=== PATIENT | female | born 1960 | race Caucasian/White ===

== ENCOUNTER 2017-04-06 08:07 | Observation (INO) | payer BC ==
--- NOTE | ~2017-04-06 | HP ---
History And Physical [id number] [place]. [address] NAME: JOSEPH STANTON : 64 STATUS : ADM Allyssa PAT#: [id number] AGE: 56 ADM/REG DATE : 04/06/17 MR#: [id number] REPORT SERV DATE: 04/06/17 DICTATED BY: DATE: REPORT STATUS : Draft TRANSCRIBED BY: MODL DATE: 04/06/17 DATE OF ADMISSION: 04/06/2017 The patient is admitted to the [facility] Hospitalist Service. CHIEF COMPLAINT: "Pain everywhere," nausea, pain in the abdomen. HISTORY OF PRESENT ILLNESS: Ms. Stanton is a 56-year-old white female, admitted to [facility] yesterday by Dr. Renteria for a chief complaint of chest pressure. There was concern for a possible cardiac ischemia and so she was transferred to the [facility] on 04/06 and has undergone subsequent coronary catheterization by Dr. Minor Perez with normal coronaries. However, she continues to express pain everywhere and some nausea. Dr. Perez felt that she was too sick to be discharged to home and requested admission to the Hospitalist Service. The patient is recovering in short-stay, states that her pain has been present for several weeks. There is no specific location for her pain aside from perhaps her epigastrium. She has been feeling nauseous, but has not vomited. She has had a Nicolette fundoplication x2 and states that she is unable to vomit. She states the pain feels "as if it is coming unravelled." She has also endorsed some loose stools, but denies any melena or bright red blood per rectum. She denies fevers and chills. She denies any dysuria or other urinary issues. When asked in more detail to describe the whole-body pain, she just simply states that it is both arms, back, and lower extremities. She is requesting IV pain medications for this. She denies any recent medication changes or other symptoms of note. She has had a comprehensive metabolic panel here, which shows new elevation of her liver enzymes which she states is not an issue she has experienced in the past. REVIEW OF SYSTEMS: Full 14-point review of systems is negative except as dictated in the history of present illness. PAST MEDICAL HISTORY: Includes, 1. Hypertension, for which she recently started losartan. 2. COPD with ongoing tobacco use. 3. History of treated TB. 4. History of ovarian cancer with treatment over 20 years ago. 5. Gastroesophageal reflux disease. 6. Chronic back pain. 7. History of dyslipidemia. PAST SURGICAL HISTORY: Includes cholecystectomy, appendectomy, total hysterectomy, oophorectomy, Nicolette fundoplication x2, history of prior back surgery. ALLERGIES: INCLUDE TORADOL AND CLONIDINE. History And Physical [address] [address] NAME: JOSEPH STANTON : 64 STATUS : ADM Allyssa PAT#: [id number] AGE: 56 ADM/REG DATE : 04/06/17 MR#: [id number] REPORT SERV DATE: 04/06/17 DICTATED BY: DATE: REPORT STATUS : Draft TRANSCRIBED BY: PAULINA DATE: 04/06/17 CURRENT MEDICATIONS: Losartan, ibuprofen, and albuterol. SOCIAL HISTORY: The patient is and has one child, 37 years old. He does not live locally. She is disabled. She smokes three cigarettes a day. She does not presently consume any alcohol, but used to drink heavily, and so she stopped a year ago. No history of illicit substance use. FAMILY HISTORY: Pertinent for congestive heart failure in her father, who of lung cancer. Multiple siblings with early myocardial infarctions, and one brother with history of viral hepatitis. The patient's mother is in good health. PHYSICAL EXAMINATION: VITAL SIGNS: Temperature 97.6, pulse 72, respirations 20, oxygen saturations 97% on room air, and blood pressure 124/61. GENERAL: This is an obese white female, in no acute distress. Alert and oriented in three dimensions. Asking for food and pain medications. HEENT: Normocephalic, atraumatic. Pupils are equally round and reactive to light. No scleral icterus. No sinus tenderness to palpation. Oropharynx moist and pink. NECK: Supple. No jugular venous distention. No lymphadenopathy. No bruits. CARDIOVASCULAR: Regular rate and rhythm. No murmurs, rubs or gallops. LUNGS: Clear to auscultation bilaterally with faint end-expiratory wheezing on forced expiration. No crackles or rhonchi. ABDOMEN: Soft with minimal epigastric tenderness to palpation. No rebound. No guarding. No right upper quadrant tenderness to palpation. Positive bowel sounds in four quadrants with no hepatosplenomegaly. EXTREMITIES: No cyanosis, clubbing, or edema. SKIN: Normal skin turgor with no rash or skin breakdown. NEUROLOGIC: Cranial nerves 2 through 12 were tested and are intact. Deep tendon reflexes 2+ bilateral, brachioradialis and patellar tendons. Sensation intact to fine touch and temperature in all four limbs, strength is 5/5 throughout. PERTINENT LABS: White blood cell count 7.2, hemoglobin 14.5, hematocrit 42.2, platelets 261. Sodium 138, potassium 3.9, chloride 103, bicarb 30, BUN 15, creatinine 1.0, glucose 122, calcium 8.3. Total cholesterol 224, HDL 60, LDL 137, triglycerides 135, total protein 6.9, albumin 3.4, alkaline phosphatase 149, ALT 292, AST 359, amylase 49, lipase 150. Multiple troponins negative. IMAGING: PA lateral chest x-ray, no acute cardiopulmonary disease. IMPRESSION: 1. Abdominal pain. 2. Elevated liver enzymes. 3. Nausea, but no vomiting, history of Nicolette fundoplication. 4. Diarrhea. 5. Gastroesophageal reflux disease. 6. History of alcohol abuse. History And Physical [address] [address] NAME: JOSEPH STANTON : 64 STATUS : ADM Allyssa PAT#: [id number] AGE: 56 ADM/REG DATE : 04/06/17 MR#: [id number] REPORT SERV DATE: 04/06/17 DICTATED BY: DATE: REPORT STATUS : Draft TRANSCRIBED BY: MODL DATE: 04/06/17 7. Chronic obstructive pulmonary disease. 8. History of treated tuberculosis. 9. History of ovarian cancer. 10.History of chronic pain with recent acute pain "all over.". PLAN: 1. The patient is being admitted in observation status to the Hospitalist Service for further evaluation of her GI issues. Bed has been requested in the clinical decision unit. 2. Check a CT abdomen and pelvis to rule out common bile duct stone or other liver pathology. Lipase is negative, therefore not suggestive of acute pancreatitis. Reflux may be the etiology of patient's symptoms as it does not appear that she takes a proton pump inhibitor chronically, but does take ibuprofen. 3. Check hepatitis serologies and Tylenol level. 4. Symptomatic management with proton pump inhibitor, IV fluids, Carafate, pain medications. 5. If loose stool, send stool studies for C diff PCR, fecal white blood cell count, Gram stain, culture, ova and parasite. 6. Recheck labs in the morning for possible discharge on 04/07. Pending results of the workup outlined above. EDEN/PAULINA Dionte Waller M.D. / [id number] CC: Belia Pineda NP
--- NOTE | ~2017-04-06 | DS ---
Discharge Summary [facility] [address] [place]. [address] NAME: JOSEPH FULTON : 64 STATUS : DIS Allyssa PAT#: [id number] AGE: 56 ADM/REG DATE : 04/06/17 MR#: [id number] REPORT SERV DATE: 04/07/17 DICTATED BY: LINDA SORTO DATE: 04/07/17 REPORT STATUS : Draft TRANSCRIBED BY: MODMiya DATE: 04/07/17 ADMISSION DATE: 04/06/2017 DISCHARGE DATE: 04/07/2017 DISCHARGE DIAGNOSES: 1. Chest pain, noncardiac, musculoskeletal and costochondral. 2. Generalized abdominal pain and gastroesophageal reflux. 3. Generalized anxiety. 4. Nausea, improved. 5. Elevated liver enzymes trending downward. 6. History of chronic pain and back pain. 7. History of alcohol use. 8. History of chronic obstructive pulmonary disease with current tobacco usage. DISCHARGE MEDICATIONS: Are as follows, Cymbalta 30 mg daily, prescription was written for this; Carafate 1 g p.o. with meals and at bedtime for the next ten days; Ultram 50 mg every eight hours p.r.n. for pain; albuterol nebulizers two puffs three times daily for shortness of breath; Cozaar 25 mg daily; Advil, have recommended decreasing dosage to 200 mg every six hours p.r.n. for pain; and Prilosec 40 mg daily. HISTORY OF PRESENT ILLNESS: A 56-year-old white female, who originally was admitted at [facility] and complaints of chest pressure. Please see initial H and P of Dr. Luis F Renteria, as the patient was then transferred to [facility] and underwent heart catheterization, which showed normal coronary arteries. Hospitalist Service was asked to admit for noncardiac chest pain. Please see initial H and P of Dr. Dionte Waller. PROCEDURES AND IMAGING DURING THIS ADMISSION: Include a CT of the abdomen and pelvis that showed no acute abdominal or pelvic pathology, but status post Nicolette fundoplication, cholecystectomy, hysterectomy, and lumbar spine fusion of L5 to S1. A cardiac catheterization performed on 04/06/2017 showing no evidence of flow-limiting coronary artery disease. Ejection fraction 60%. In followup, the patient did have some initial elevated LFTs of 292 and 359, but this already began to trend down the following day to 195 and 130. Sedimentation rate was checked, which was negative within normal limits at 6. She is afebrile. On interview with the patient, she expressed to me on multiple occasions that she felt worse, that her pain was 12/10, that she needed her Xanax that she claims she had been on in the past some years ago. She clearly was very anxious just in simple conversation and questioning, and she reported that she had seen a psychiatrist in the past. She also has seen Dr. Morel for GI in the past given her history of GERD and her Nicolette fundoplication. I discussed with the patient at length the need to follow up with Dr. Morel and her primary care, and have instituted Cymbalta, prescription was written, instructed to follow up in regard to that, and to avoid at all costs benzodiazepines. We will also try limited amount of tramadol for her musculoskeletal pain and she has a prescription for 12 of these pills. In further discussion, I strongly counseled the need to quit smoking completely, as this will only be a detriment to her in the long run. The patient was then ambulating to the bathroom. Has felt somewhat better in the afternoon and so we will discharge home with the above medications, prescriptions, and following up with Discharge Summary [address] [place]. [address] NAME: JOSEPH FULTON : 64 STATUS : DIS Allyssa PAT#: [id number] AGE: 56 ADM/REG DATE : 04/06/17 MR#: [id number] REPORT SERV DATE: 04/07/17 DICTATED BY: LINDA SORTO DATE: 04/07/17 REPORT STATUS : Draft TRANSCRIBED BY: MODL DATE: 04/07/17 her primary care, Shavonne Lobo, and GI, Dr. Morel, and I have also recommended an outpatient psychiatric evaluation and followup. I have discussed this plan of care and prescriptions with the patient and her mother whom she lives with. Both are in agreement with this plan going forward. Please note that greater than 30 minutes was spent on this discharge for medication teaching, followup planning, and further disposition. GEOFF/GRACEL Linda Sorto NP / [id number] CC: Belia Pineda NP
[~2017-04-06 08:07] MED LIST: ACET500CAP PO; ADVIL PO; ALBUTEROL0.083 % INH; B COMPLETE PO; COMBIVENT INH; COZ25 PO; FLUCON1 PO; LORTAB 5 PO; LOTRIMIN AF1 % EX; NEUR100 PO; NORV5 PO; NYSTATPOW TOP; PERCOCET1 TA2 PO; PRAVACHOL40 MG PO; PREM625 PO; PRILO PO; PRIN10 PO; PROAIR HFA INH; PROVENTSOL INH; PROVHFA INH
[2017-04-06 10:49] LABS: CHOL/HDL RATIO(NOT ORDER) 3.7 (0-5)
[2017-04-06 12:15] LABS: BASOPHILS 0.8 %; BASOPHILS ABSOLUTE 0.06 10/3/uL (0.0-0.16); EOSINOPHILS ABSOLUTE 0.07 10/3/uL (0.0-0.53); HEMATOCRIT 42.2 % (36.0-48.0); HEMOGLOBIN 14.5 g/dL (12.0-16.0); IMMATURE GRANULOCYTES 0.7 %; IMMATURE GRANULOCYTES ABSOLUTE 0.05 10/3/uL (0.0-0.11); LYMPHOCYTES 27.5 %; LYMPHOCYTES ABSOLUTE 1.99 10/3/uL (0.67-4.30); MEAN CORPUS HGB CONC 34.4 g/dL (32.0-36.0); MEAN CORPUSCULAR HEMOGLOB 30.5 pg (26.0-34.0); MEAN CORPUSCULAR VOLUME 88.7 fL (80-100); MEAN PLATELET VOLUME 9.1 fL (9.2-13.0); MONOCYTES ABSOLUTE 0.65 10/3/uL (0.21-1.20); NEUTROPHILS ABSOLUTE 4.41 10/3/uL (2.02-8.40); PLATELET COUNT 261 10/3/uL (150-400); RBC DISTRIBUTION WIDTH 13.8 % (12.0-16.0); RED CELL COUNT 4.76 10/6/uL (4.0-5.6); WHITE BLOOD CELLS 7.2 10/3/uL (4.5-10.5)
[2017-04-06 12:18] LABS: MANUAL DIFF NO %
[2017-04-06 12:31] LABS: ALBUMIN 3.4 G/DL (3.5-5.0); BUN (BLOOD UREA NITROGEN) 15 MG/DL (6-23); CALCIUM, SERUM 8.3 MG/DL (8.5-10.4); CHLORIDE, SERUM 103 MMOL/L (96-112); CO2 (CARBON DIOXIDE) 30 MMOL/L (24-34); CREATININE 1.01 MG/DL (0.55-1.02); GFR AFRICAN AMERICAN 73 ML/MIN (>=60); GFR NON AFRICAN AMERICAN 63 ML/MIN (>=60); GLOBULIN 3.5 G/DL (2.5-4.1); GLUCOSE, SERUM 122 MG/DL (60-99); POTASSIUM, SERUM 3.9 MMOL/L (3.5-5.3); SGOT(AST) 359 U/L (5-40); SGPT(ALT) 292 U/L (5-65); SODIUM, SERUM 138 MMOL/L (135-148); TOTAL PROTEIN 6.9 G/DL (6.0-8.5)
[2017-04-06 12:32] LABS: ALKALINE PHOSPHATASE 149 U/L (45-117); TOTAL BILIRUBIN 0.7 MG/DL (0-1.2)
[2017-04-06 15:42] LABS: WBC (NOT ORDERED) (RFLEX) 0 (0-5)
[2017-04-06 16:08] LABS: ASCORBIC ACID (UR NOT ORDER) NEG (NEG); BILIRUBIN, URINE NEGATIVE (NEG); KETONE, URINE NEGATIVE (NEG); LEUKOCYTE ESTERASE(NOT OR NEG (NEG)
[2017-04-07 04:02] LABS: BASOPHILS 0.6 %; BASOPHILS ABSOLUTE 0.04 10/3/uL (0.0-0.16); EOSINOPHILS 1.9 %; EOSINOPHILS ABSOLUTE 0.14 10/3/uL (0.0-0.53); HEMATOCRIT 40.2 % (36.0-48.0); HEMOGLOBIN 13.5 g/dL (12.0-16.0); IMMATURE GRANULOCYTES 0.8 %; IMMATURE GRANULOCYTES ABSOLUTE 0.06 10/3/uL (0.0-0.11); LYMPHOCYTES 37.9 %; LYMPHOCYTES ABSOLUTE 2.74 10/3/uL (0.67-4.30); MANUAL DIFF NO %; MEAN CORPUS HGB CONC 33.6 g/dL (32.0-36.0); MEAN CORPUSCULAR HEMOGLOB 29.9 pg (26.0-34.0); MEAN CORPUSCULAR VOLUME 89.1 fL (80-100); MEAN PLATELET VOLUME 9.5 fL (9.2-13.0); MONOCYTES 10.7 %; MONOCYTES ABSOLUTE 0.77 10/3/uL (0.21-1.20); NEUTROPHILS 48.1 %; NEUTROPHILS ABSOLUTE 3.48 10/3/uL (2.02-8.40); PLATELET COUNT 263 10/3/uL (150-400); RBC DISTRIBUTION WIDTH 13.6 % (12.0-16.0); RED CELL COUNT 4.51 10/6/uL (4.0-5.6); WHITE BLOOD CELLS 7.2 10/3/uL (4.5-10.5)
[2017-04-07 04:25] LABS: ALBUMIN 3.3 G/DL (3.5-5.0); ALKALINE PHOSPHATASE 146 U/L (45-117); BUN (BLOOD UREA NITROGEN) 16 MG/DL (6-23); CALCIUM, SERUM 8.3 MG/DL (8.5-10.4); CHLORIDE, SERUM 106 MMOL/L (96-112); CK-MB 0.8 NG/ML; CO2 (CARBON DIOXIDE) 29 MMOL/L (24-34); CPK 36 U/L (0-200); CREATININE 1.06 MG/DL (0.55-1.02); GFR AFRICAN AMERICAN 69 ML/MIN (>=60); GFR NON AFRICAN AMERICAN 59 ML/MIN (>=60); GLOBULIN 3.3 G/DL (2.5-4.1); GLUCOSE, SERUM 114 MG/DL (60-99); MYOGLOBIN, SERUM 31 NG/ML (0-85); POTASSIUM, SERUM 4.3 MMOL/L (3.5-5.3); SGOT(AST) 130 U/L (5-40); SGPT(ALT) 195 U/L (5-65); SODIUM, SERUM 139 MMOL/L (135-148); TOTAL BILIRUBIN 0.5 MG/DL (0-1.2); TOTAL PROTEIN 6.6 G/DL (6.0-8.5)
[2017-04-07 04:26] LABS: ACETAMINOPHEN LEVEL (TYLENOL) < 2.0 MCG/ML (10.0-20.0)
[2017-04-07] MEDS ORDERED: PRILOSEC40 MG PO (14:38)
[2017-04-07] MEDS ORDERED: SUCR PO (14:38)
[2017-04-07] MEDS ORDERED: CYMBALTA30 PO (14:38)
[2017-04-07] MEDS ORDERED: ULTRAM50 PO (14:39)
[2017-04-07 14:51] LABS: HEPATITIS C ANTIBODY NON-REACTIVE (NON-REACT)
[2017-04-09 10:49] LABS: HEPATITIS B SURFACE ANTIGEN NON-REACTIVE (NON-REACT)
[2017-04-09 11:13] LABS: HEPATITIS B CORE AB IGM NON-REACTIVE (NON-REAC)
[2017-04-09 11:16] LABS: HEP A ANTIBODY IGM NON-REACTIVE (NON-REACT)
== END 2017-04-07 14:55 | disposition home or self-care (01) ==
LOC: CORLMH 08:07 → SSU1 09:26
PROVIDERS: Hospitalist; Internal Medicine Cardiovascular Disease; Nurse Practitioner Family
DX: I20.0 Unstable angina (principal); R07.89 Other chest pain; E66.9 Obesity, unspecified; I10 Essential (primary) hypertension; Z72.0 Tobacco use; J44.9 Chronic obstructive pulmonary disease, unspecified; Z79.899 Other long term (current) drug therapy; Z98.890 Other specified postprocedural states; Z90.49 Acquired absence of other specified parts of digestive tract; Z86.11 Personal history of tuberculosis; K21.9 Gastro-esophageal reflux disease without esophagitis; G89.29 Other chronic pain; M54.9 Dorsalgia, unspecified; Z90.710 Acquired absence of both cervix and uterus; Z88.5 Allergy status to narcotic agent; Z79.1 Long term (current) use of non-steroidal anti-inflammatories (NSAID); Z82.49 Family history of ischemic heart disease and other diseases of the circulatory system; Z85.43 Personal history of malignant neoplasm of ovary
CPT/HCPCS: 74176; 80053; 80061; 80074; 81001; 82150; 82550; 82553; 83690; 83735; 83874; 85025; 85652; 93005; 93458; 96374; 96375; 96376; 99152; A9270-GY; C1769; C1887; C1894; G0378; G0480; J1200; J2250; J2405; J3010; Q9967